=== PATIENT | male | born 1935 ===

== ENCOUNTER 2022-12-29 17:12 | Inpatient (IN) | payer MEDICARE, OTHER ==
[2022-12-29] VITALS (8 sets, daily range): BP systolic 59–134; BP diastolic 37–91
[~2022-12-29] VITALS: Ht 175.3 cm; Wt 100.1 kg
[2022-12-29 20:09] LABS: Hematocrit 25.8 % (37.0-53.0); Hemoglobin 8.6 g/dL (13.5-17.5)
[2022-12-29] MEDS ORDERED: JANTOVEN7.5 M2 PO ×2 (20:13→20:18)
[2022-12-29] MEDS ORDERED: GLIMEPIRIDE4 MG PO (20:13)
[2022-12-29] MEDS ORDERED: CARVEDILOL12.5 MG PO (20:14)
[2022-12-29] MEDS ORDERED: LATANOPROST2.5 M3 BOTHEYES (20:15)
[2022-12-29] MEDS ORDERED: Lisinopril2.5 MG PO (20:16)
[2022-12-29] MEDS ORDERED: BRIMONIDINE TART5 M2 BOTHEYES (20:16)
[2022-12-29] MEDS ORDERED: ROSUVASTATIN CA10 MG PO (20:17)
[2022-12-29] MEDS ORDERED: TIMO10T PO (20:17)
[2022-12-29 21:56] LABS: Hematocrit 25.3 % (37.0-53.0); Hemoglobin 8.4 g/dL (13.5-17.5)
[2022-12-29 22:16] LABS: Albumin, Blood 2.4 g/dL (3.4-5.0); Albumin/Globulin Ratio 0.8 (0.8-1.8); Bilirubin, Total 0.8 mg/dL (0.1-1.0); Bun/Creatinine Ratio 67.2 (12.0-20.0); Calcium, Blood 7.8 mg/dL (8.5-10.1); Creatinine, Blood 2.01 mg/dL (0.60-1.20); Globulin, Blood 3.2 g/dL (2.2-4.0); Potassium, Blood 5.5 mmol/L (3.5-5.5); Total Protein, Blood 5.6 g/dL (6.4-8.2)
[2022-12-29 22:22] LABS: Prothrombin Time Results 41.9 Sec (9.7-11.5)
[2022-12-29 22:29] LABS: International Normalized Ratio 4.34
[2022-12-29 23:00] LABS: Base Excess Venous -12.5 mmol/L
[2022-12-29 23:01] LABS: pH Blood Venous 7.23 (7.34-7.37)
--- NOTE | 2022-12-29 23:26 | NUR ---
NEW PT ADMIT FROM [facility]: DIRECT ADMIT FROM [facility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phone]. BED LOWERED, CALL LIGHT IN REACH, WILL CONTINUE TO MONITOR.
[2022-12-30] VITALS (66 sets, daily range): BP systolic 95–140; BP diastolic 37–82
[2022-12-30 01:52] LABS: Hematocrit 23.6 % (37.0-53.0); Hemoglobin 8.1 g/dL (13.5-17.5)
[2022-12-30 05:47] LABS: Hematocrit 22.7 % (37.0-53.0); Hemoglobin 7.7 g/dL (13.5-17.5)
[2022-12-30 05:55] LABS: pH Blood Venous 7.23 (7.34-7.37)
[2022-12-30 05:56] LABS: Base Excess Venous -11.3 mmol/L; Bicarbonate Venous 13.1 mmol/L (24.0-30.0); PCO2 Venous 38.7 mmHg (38-42)
[2022-12-30 06:05] LABS: International Normalized Ratio 3.02
[2022-12-30 06:08] LABS: Prothrombin Time Results 29.8 Sec (9.7-11.5)
[2022-12-30 06:33] LABS: Albumin, Blood 2.4 g/dL (3.4-5.0); Albumin/Globulin Ratio 0.8 (0.8-1.8); Bilirubin, Total 0.6 mg/dL (0.1-1.0); Bun/Creatinine Ratio 60.1 (12.0-20.0); Calcium, Blood 7.8 mg/dL (8.5-10.1); Creatinine, Blood 2.13 mg/dL (0.60-1.20); Globulin, Blood 2.9 g/dL (2.2-4.0); Total Protein, Blood 5.3 g/dL (6.4-8.2)
--- NOTE | 2022-12-30 06:34 | NUR ---
SHIFT SUMMARY: PT ABLE TO SLEPT THROUGHOUT THE NIGHT; VSS THROUGHUOT THE NIGHT. PT VBG REPEAT THIS MORNING REMAINS AT 7.23; DR FRANZ NOTIFIED AND ORDERS RECIEVED FOR ANOTHER 50 MEQ SODIUM BICAP IV PUSH AND A SODIUM BICARB INF. BICARB PUSH GIVEN AND WAITING ON PHARMACY TO SEND DOWN BICARB INF. PT REMAINS A&O; HGB DROPPED FROM 8.1 TO 7.7 THIS MORNING. PT HAS HAD NO BLOODY STOOLS SINCE ADMISSION. PT HAD 1650 URINE OUTPUT THIS SHIFT. BED LOWERED, CALL LIGHT IN REACH, WILL CONTINUE TO MONITOR UNTIL ONCOMING RN ARRIVES.
--- NOTE | 2022-12-30 07:55 | NUR ---
SHIFT ASSESSMENT ASSUMED CARE OF PT @ 0700. PT A&OX4, FOLLOWING COMMANDS, AMBULATES TO BSC TO URINATE. DENIES DIZZINESS, ADMITS TO FEELING WEAKER THAN NORMAL. NO BM SINCE ADMIT, DENIES N/V, DENIES ABDOMINAL PAIN. BOWEL TONES ACTIVE. PT ON CLEAR DIET, GIVING SMALL SIPS OF WATER AND ICE CHIPS, AWAITING EGD. BICARB, PROTONIX, AND SANDOSTATIN INFUSING. CALL LIGHT IN REACH.
[2022-12-30 08:14] LABS: Source, Urine Clean Catch
[2022-12-30 08:27] LABS: Appearance, Urine Clear (Clear); Bilirubin, Urine Neg (Neg); Blood, Urine Neg (Neg); Color, Urine Yellow (P-Yellow); Glucose Qualitative, Urine 4+ (Neg); Ketones, Urine Neg (Neg); Leukocyte Esterase, Urine Neg (Neg); Nitrite, Urine Neg (Neg); Protein, Urine Neg (Neg); Specific Gravity, Urine 1.015 (1.003-1.022); Urobilinogen, Urine NORM (Normal)
[2022-12-30 08:30] LABS: Bun/Creatinine Ratio 61.7 (12.0-20.0); Calcium, Blood 7.9 mg/dL (8.5-10.1); Creatinine, Blood 2.09 mg/dL (0.60-1.20); Potassium, Blood 4.8 mmol/L (3.5-5.5)
[2022-12-30 09:46] LABS: Hematocrit 20.8 % (37.0-53.0); Hemoglobin 7.2 g/dL (13.5-17.5)
[2022-12-30 13:59] LABS: Hematocrit 22.6 % (37.0-53.0); Hemoglobin 7.4 g/dL (13.5-17.5)
[2022-12-30 14:23] LABS: Bun/Creatinine Ratio 60.9 (12.0-20.0); Calcium, Blood 7.7 mg/dL (8.5-10.1); Creatinine, Blood 2.02 mg/dL (0.60-1.20); Potassium, Blood 4.5 mmol/L (3.5-5.5)
--- NOTE | 2022-12-30 16:59 | NUR ---
12/30/22 1659 Zak Mejía SEDATION PER DR. AVILEZ, SEE ANESTHESIA RECORD
[2022-12-30 18:11] LABS: Hematocrit 21.1 % (37.0-53.0); Hemoglobin 7.1 g/dL (13.5-17.5)
--- NOTE | 2022-12-30 19:23 | NUR ---
SHIFT SUMMARY PT REMAINS A&OX4. 2U FFP ADMINSTERED THIS AFTERNOON PRIOR TO EGD. EGD FINISHED SHORTLY AFTER 1800. 2 BANDS PLACED, NO COMPLICATIONS. PT UP TO BSC SHORTLY AFTER PROCEDURE FINISHED, ABLE TO STAND AND TRANSFER c SBA, NO BM. PT DENIES NAUSEA, C/O MILD ABD DISCOMFORT. REQUESTING WATER, GIVEN ICE WATER AND ADVICE TO START SLOW, SMALL SIPS. SANDOSTATIN, PROTONIX, AND BICARB GTT CONTINUE @ PRESCRIBED RATE. VSS, NO OTHER ACUTE CHANGES. CALL LIGHT IN REACH. REPORT GIVEN TO ONCOMING NURSE.
[2022-12-30 21:12] LABS: Bun/Creatinine Ratio 53.8 (12.0-20.0); Calcium, Blood 7.6 mg/dL (8.5-10.1); Creatinine, Blood 1.95 mg/dL (0.60-1.20); Potassium, Blood 4.1 mmol/L (3.5-5.5)
[2022-12-31] VITALS (55 sets, daily range): BP systolic 107–142; BP diastolic 48–119
[2022-12-31 02:52] LABS: Hematocrit 21.3 % (37.0-53.0); Hemoglobin 7.1 g/dL (13.5-17.5)
[2022-12-31 03:20] LABS: Albumin, Blood 2.4 g/dL (3.4-5.0); Anion Gap 4 mmol/L (6-16); Blood Urea Nitrogen 98 mg/dL (8-24); Bun/Creatinine Ratio 48.8 (12.0-20.0); CO2, Blood 23 mmol/L (21-32); Calcium, Blood 7.7 mg/dL (8.5-10.1); Chloride, Blood 116 mmol/L (98-108); Creatinine, Blood 2.01 mg/dL (0.60-1.20); Glomerular Filtration Rate 32 (60-); Glucose, Blood 161 mg/dL (70-99); Magnesium, Blood 2.4 mg/dL (1.6-2.4); Phosphorus, Blood 3.9 mg/dL (2.5-4.9); Potassium, Blood 4.1 mmol/L (3.5-5.5); Sodium, Blood 143 mmol/L (136-145)
[2022-12-31 03:33] LABS: International Normalized Ratio 1.5; Prothrombin Time Results 15.4 Sec (9.7-11.5)
--- NOTE | 2022-12-31 06:56 | NUR ---
SHIFT SUMMARY OVERNIGHT, PATIENT ALERT AND ORIENTED X4. RESTLESS, COOPERATIVE. MONITOR SHOWING V-PACED RHYTHM, HR 60-70S. NORMOTENSIVE. S/P ENDOSCOPY; NO ACUTE BLEEDING NOTED. REPORT GIVEN TO AM NURSE.
[2022-12-31 08:20] LABS: Calcium, Blood 7.3 mg/dL (8.5-10.1); Creatinine, Blood 1.91 mg/dL (0.60-1.20)
[2022-12-31 09:29] LABS: Hematocrit 20.1 % (37.0-53.0); Hemoglobin 6.6 g/dL (13.5-17.5)
[2022-12-31 16:50] LABS: Hematocrit 23.6 % (37.0-53.0); Hemoglobin 7.8 g/dL (13.5-17.5)
--- NOTE | 2022-12-31 17:49 | NUR ---
SHIFT SUMMARY NO ACUTE CHANGES THIS SHIFT. PT HAS REMAINED ALERT AND ORIENTED WHEN AWAKE. PT IS PLEASANT AND ANSWERS QUESTIONS APPROPRIATELY. PT WORKED WITH PHYSICAL THERAPY THIS SHIFT AND SAT IN CHAIR FOR SOME TIME. PT WITH MINIMAL ASSISTANCE TO BSC TO VOID THIS SHIFT. VITAL SIGNS STABLE. SANDOSTATIN GTT INFUSING AT 50 MCG/HR. PT RECIEVED 1 UNIT PRBCS THIS AFTERNOON AND 2ND UNIT PRBCS INFUSING AT THIS TIME. NO BLOODY STOOLS NOTED THIS SHIFT. PT FAMILY AT BEDSIDE THIS AFTERNOON. PT TAKING FULL LIQUID DIET WELL. WILL CONTINUE TO MONITOR AND REPORT OFF TO ONCOMING RN.
--- NOTE | 2022-12-31 22:04 | NUR ---
ASSUMED CARE PT IS A&O X4; SPO2 >92% ON RA; MAP >65; HR IN THE 60'S W/ PACED RHYTHM. NO C/O OF CP, SOB, OR NAUSEA. 2ND UNIT OF PRBC INFUSED W/ NO TRANSFUSION REACTION. PT UP TO BEDSIDE COMMODE TWICE W/ C/O OF MILD WEAKNESS. PT DOES HAVE C/O OF 5/10 LOWER BACK PAIN. PT ALSO STATES THAT HE HAS SEVERE ANXIETY WHEN IT COMES TO NEEDLES AND IV DRUG ADMINISTRATION.
--- NOTE | 2022-12-31 23:19 | NUR ---
UPDATE SAT W/ PT AND DISCUSSED PT'S WORRIES AND HAD A GENERAL CONVERSATION. PT HAS EXPRESSED STRESS AND WORRY ABOUT CURRENT STAY, BEING [employer] FOR [employer]/ [employer], FINANCIAL STRESS, AND NOT HAVING SEEN HER IN A WHILE. WILL ASK AM ABOUT POSSIBLE PALLIATIVE CARE/CARE MANAGEMENT FOR HELP W/ OUT OF HOSPITAL CARE PLAN.
[2023-01-01] VITALS (34 sets, daily range): BP systolic 108–151; BP diastolic 49–107
[2023-01-01 01:14] LABS: Hematocrit 26.1 % (37.0-53.0); Hemoglobin 8.8 g/dL (13.5-17.5)
--- NOTE | 2023-01-01 05:16 | NUR ---
SHIFT SUMMARY PT IS A&O X4; VITALS REMAINED STABLE T/O SHIFT. PT STATED THAT HE BARELY SLEPT LAST NIGHT AND HAS NOT BEEN ABLE TO SLEEP FOR THE PAST FEW NIGHTS, OTHERWISE NO C/O'S. PT CONTINUES TO NOT HAVE C/P, SOB, OR NAUSEA. NO ACUTE EVENTS OVERNIGHT.
[2023-01-01 05:18] LABS: Hematocrit 27.6 % (37.0-53.0); Hemoglobin 9.2 g/dL (13.5-17.5)
[2023-01-01 05:26] LABS: International Normalized Ratio 1.25
[2023-01-01 06:06] LABS: Albumin, Blood 2.6 g/dL (3.4-5.0); Anion Gap 5 mmol/L (6-16); Blood Urea Nitrogen 65 mg/dL (8-24); Bun/Creatinine Ratio 37.4 (12.0-20.0); CO2, Blood 19 mmol/L (21-32); Calcium, Blood 7.3 mg/dL (8.5-10.1); Chloride, Blood 114 mmol/L (98-108); Creatinine, Blood 1.74 mg/dL (0.60-1.20); Glomerular Filtration Rate 38 (60-); Glucose, Blood 256 mg/dL (70-99); Phosphorus, Blood 3.3 mg/dL (2.5-4.9); Potassium, Blood 4.1 mmol/L (3.5-5.5); Sodium, Blood 138 mmol/L (136-145)
[2023-01-01 09:12] LABS: Hematocrit 27.5 % (37.0-53.0); Hemoglobin 9.2 g/dL (13.5-17.5)
--- NOTE | 2023-01-01 17:37 | NUR ---
SHIFT SUMMARY PT RESTING IN BED, TRANSITIONED THROGHOUT THE DAY FROM BED TO CHAIR WITH MINIMAL ASSISTANCE. HR 70S PACED, BP STABLE. SANDOSTATIN INFUSING AT 25MLS/HR IN LEFT ARM. H&H STABLE. NO ACUTE EVENTS THROUGHOUT THE SHIFT. WILL CONTINUE TO MONITOR AND GIVE REPORT TO ONCOMING RN.
--- NOTE | 2023-01-01 20:00 | NUR ---
ASSUMED CARE OF PT AT 1915. REPORT RECEIVED AT BEDSIDE. PT PRESENTS IN BED. ALERT AND ORIENTED. PLEASANT AND COOPERATIVE WITH CARE AND ASSESSMENT. PT CONTINUES ON SANDOSTATIN DRIP. NO S/S BLEEDING TO NOTE. WILL REVEIW CHART AND PLAN OF CARE FOR THIS PT.
[2023-01-02] VITALS: BP 145/78
--- NOTE | 2023-01-02 01:16 | NUR ---
PT HAS BEEN UP IN UNIT. AMBULATES TO SHOWER WITH STANDBY ASSIST. PT USES WHEELCHAIR AND PUSHES CHAIR TO SHOWER. PT DOES STATE GOOD TOLERANCE. PT USES URINAL AT BEDSIDE. REPORT GIVEN TO KIKO SRINIVASAN. REPORT GIVEN IN SBAR FASHION. PT TO TRANSFER TO ROOM 306.
[2023-01-02 01:36] VITALS: BP 150/66
[2023-01-02 06:08] LABS: International Normalized Ratio 1.64; Prothrombin Time Results 16.7 Sec (9.7-11.5)
[2023-01-02 07:23] VITALS: BP 138/65
[2023-01-02 08:13] LABS: Hematocrit 27.1 % (37.0-53.0)
[2023-01-02] MEDS ORDERED: VISBIOME 112.51 EACH PO (10:50)
[2023-01-02] MEDS ORDERED: WARF7.5 PO (10:50)
[2023-01-02] MEDS ORDERED: PANT40 PO (10:51)
[2023-01-02] MEDS ORDERED: SUCR1 PO (10:51)
[2023-01-02] MEDS ORDERED: CIPR500 PO (10:51)
--- NOTE | 2023-01-02 13:47 | NUR ---
DISCHARGE-1145 PT DISCHARGED TO HOME. FAMILY/FRIENDS AT BEDSIDE. EDUCATION PROVIDED ON DISCHARGE INSTRUCTIONS. NO QUESTIONS FROM PT AT THIS TIME. PT ALERT AND ORIENTEDX4. WALKED TO WHEEL CHAIR BUT USED FURNITURE FOR SUPPORT
== END 2023-01-02 11:50 | disposition home health service (06) | DRG 441 ==
LOC: ICUE 17:12 → MEDS 01-02 01:34
PROVIDERS: Internal Medicine; Internal Medicine Gastroenterology; Nurse Practitioner Acute Care; ADMIT Internal Medicine
PROC: 06L38CZ Occlusion of Esophageal Vein with Extraluminal Device, Via Natural or Artificial Opening Endoscopic (ICD-10-PCS; principal; 2022-12-30 17:00)
DX: K76.6 Portal hypertension (principal); I85.11 Secondary esophageal varices with bleeding; R57.8 Other shock; D62 Acute posthemorrhagic anemia; K70.30 Alcoholic cirrhosis of liver without ascites; K31.89 Other diseases of stomach and duodenum; Z79.01 Long term (current) use of anticoagulants; Z95.2 Presence of prosthetic heart valve; I48.91 Unspecified atrial fibrillation; Z95.1 Presence of aortocoronary bypass graft; E78.5 Hyperlipidemia, unspecified; E03.9 Hypothyroidism, unspecified; I25.10 Atherosclerotic heart disease of native coronary artery without angina pectoris; M51.36 Other intervertebral disc degeneration, lumbar region; I12.9 Hypertensive chronic kidney disease with stage 1 through stage 4 chronic kidney disease, or unspecified chronic kidney disease; E11.22 Type 2 diabetes mellitus with diabetic chronic kidney disease; N18.9 Chronic kidney disease, unspecified
CPT/HCPCS: 36415; 36430; 80048; 80053; 80069; 81003; 82803; 82947; 83735; 83880; 85014; 85018; 85610; 86850; 86900; 86901; 86923; 97162; 97530; A9270; C9113; J0171; J0696; J1430; J2001; J2354; J2704; J7050; J7120; P9016; P9059